=== PATIENT | male | born 1990 | race African-American/Black ===

== ENCOUNTER 2016-12-23 22:32 | Emergency (ER) ==
[2016-12-23 22:38] VITALS: BP 132/81
== END 2016-12-24 01:10 | disposition left against medical advice (07) ==
LOC: ER 22:32
DX: Z53.21 Procedure and treatment not carried out due to patient leaving prior to being seen by health care provider (principal)

== ENCOUNTER 2016-12-24 13:21 | Emergency (ER) | payer SELFPAY ==
--- NOTE | 2016-12-24 14:15 | ER Document Report ---
ED Medical Screen (RME) - General Chief Complaint: Toothache Stated Complaint: TOOTH PAIN Time Seen by Provider: 12/24/16 14:14 Mode of Arrival: Ambulatory Information source: Patient Notes: We will male presents to ED for dental pain to left lower jaw he states his 2 teeth that are hurting suiting up to his left ear. Been hurting for days and is not getting any better. When a broken tooth states he does have a cavity. I have greeted and performed a rapid initial assessment of this patient. A comprehensive ED assessment and evaluation of the patient, analysis of test results and completion of medical decision making process will be conducted by an additional ED providers. TRAVEL OUTSIDE OF THE [place] IN LAST 30 DAYS: No - Related Data Allergies/Adverse Reactions: No Known Allergies Allergy (Verified 12/24/16 13:30) Past Medical History Renal/ Medical History: Denies: Hx Peritoneal Dialysis Physical Exam - Vital signs Vitals: Temp Pulse Resp BP Pulse Ox 97.9 F 62 12 122/67 98 12/24/16 13:30 12/24/16 13:30 12/24/16 13:30 12/24/16 13:30 12/24/16 13:30 Course - Vital Signs Vital signs: Temp Pulse Resp BP Pulse Ox 97.9 F 62 12 122/67 98 12/24/16 13:30 12/24/16 13:30 12/24/16 13:30 12/24/16 13:30 12/24/16 13:30
[2016-12-24] MEDS ORDERED: PENICILLIN V POTASSIUM 500 MG TABLET PO ONE (14:17)
[2016-12-24] MEDS ORDERED: HYDROCODONE/ACETAMINOPHEN 5-325 MG TABLET PO ONE (14:17)
--- NOTE | 2016-12-24 15:37 | ER Document Report ---
HPI - HPI Patient complains to provider of: dental pain Onset: Other - couple days Onset/Duration: Persistent Quality of pain: Achy, Throbbing Severity: Severe Pain Level: 5 Context: Patient presents to the emergency department with complaints of right lower dental pain for the past couple days. He reports he has a cracked tooth in this area but has never bothered him before. He denies biting down and breaking his tooth on anything. Denies other symptoms such as fever vomiting diarrhea. Reports the pain is constant. Associated Symptoms: None Exacerbated by: Denies Relieved by: Denies Similar symptoms previously: No Recently seen / treated by doctor: No - DERM Skin Color: Normal Past Medical History - General Information source: Patient - Social History Smoking Status: Unknown if Ever Smoked Cigarette use (# per day): Yes Frequency of alcohol use: None Drug Abuse: None Family History: None Patient has suicidal ideation: No Patient has homicidal ideation: No Pulmonary Medical History: Reports: Hx Asthma, Hx Bronchitis, Hx Pneumonia Renal/ Medical History: Denies: Hx Peritoneal Dialysis Past Surgical History: Reports: Hx Testicular Surgery Vertical Provider Document - CONSTITUTIONAL Agree With Documented VS: Yes Exam Limitations: No Limitations General Appearance: WD/WN - INFECTION CONTROL TRAVEL OUTSIDE OF THE [place] IN LAST 30 DAYS: No - HEENT HEENT: Atraumatic, Normocephalic. negative: Conjuctival Injection, Pharyngeal Exudate, Pharyngeal Tenderness, Pharyngeal Erythema, Tympanic Membrane Red, Tympanic Membrane Bulging Mouth Diagram: 1 - Reports are of pain no obvious infection, no erythema, no swelling ,no discharge, no pustule open his mouth wide no induration, clear voice no trismus , no ludwigs - NECK Neck: Normal Inspection, Supple. negative: Lymphadenopathy-Left, Lymphadenopathy-Right - RESPIRATORY Respiratory: Breath Sounds Normal, No Respiratory Distress O2 Sat by Pulse Oximetry: 98 - CARDIOVASCULAR Cardiovascular: Regular Rate - MUSCULOSKELETAL/EXTREMETIES Musculoskeletal/Extremeties: MAEW, FROM - NEURO Level of Consciousness: Awake, Alert, Appropriate Motor/Sensory: No Motor Deficit Course - Re-evaluation Re-evalutation: 12/24/16 15:42 Patient was placed in a hallway bed. Patient was asked if he was okay being placed in the hallway for treatment. He reported he was okay with sitting in a hallway bed. Patient was instructed on all medications. Patient was also instructed on the importance of follow-up with dental. He verbalized understanding to all instructions. - Vital Signs Vital signs: Temp Pulse Resp BP Pulse Ox 97.9 F 62 12 122/67 98 12/24/16 13:30 12/24/16 13:30 12/24/16 13:30 12/24/16 13:30 12/24/16 13:30 Discharge - Discharge Clinical Impression: Pain, dental Condition: Stable Disposition: HOME, SELF-CARE Instructions: Oral Narcotic Medication ([facility]), Toothache ([facility]), Penicillin V K ( [facility]) Additional Instructions: *You have been evaluated for dental pain *Take medications as prescribed *Follow up with dentist within one week *Return to ED for worsening condition, changes, needs Prescriptions: Oxycodone HCl/Acetaminophen [Percocet 5-325 mg Tablet] 1 - 2 tab PO ASDIR PRN # 15 tablet PRN Reason: Penicillin V Potassium [Penicillin Vk 500 mg Tablet] 500 mg PO BID #20 tablet
[2016-12-24 16:02] VITALS: BP 132/80
== END 2016-12-24 15:50 | disposition home or self-care (01) ==
LOC: ER 13:21
DX: K08.9 Disorder of teeth and supporting structures, unspecified (principal); J45.909 Unspecified asthma, uncomplicated
CPT/HCPCS: 99282

== ENCOUNTER 2017-01-05 05:55 | Emergency (ER) | payer SELFPAY ==
[2017-01-05] MEDS ORDERED: ONDANSETRON 4 MG TAB.RAPDIS PO ONE (05:59)
[2017-01-05] MEDS ORDERED: AZITHROMYCIN 250 MG TABLET PO ONE (05:59)
[2017-01-05] MEDS ORDERED: CEFTRIAXONE INJ 250 MG VIAL IM ONE (05:59)
[2017-01-05] MEDS ORDERED: LIDOCAINE 1% INJ-PF (10 MG/ML) 30 ML SDV INJ ONE (06:00)
--- NOTE | 2017-01-05 06:03 | ER Document Report ---
HPI - HPI Patient complains to provider of: Exposure to chlamydia Onset: Other - Symptoms Quality of pain: No pain Context: 26-year-old male wants to be treated for chlamydia. He is here with a sexual partner who tested positive for chlamydia November 29 untreated. No penile discharge. No dysuria. No scrotal or testicular pain. No abdominal pain. No fever chills. No history of STD Associated Symptoms: None Exacerbated by: Denies Relieved by: Denies Similar symptoms previously: No Recently seen / treated by doctor: No - ROS ROS below otherwise negative: Yes Systems Reviewed and Negative: Yes All other systems reviewed and negative Past Medical History - General Information source: Patient - Social History Smoking Status: Current Every Day Smoker Frequency of alcohol use: None Drug Abuse: None Lives with: Spouse/Significant other Family History: None Pulmonary Medical History: Reports: Hx Asthma, Hx Bronchitis, Hx Pneumonia Renal/ Medical History: Denies: Hx Peritoneal Dialysis Past Surgical History: Reports: Hx Testicular Surgery Vertical Provider Document - CONSTITUTIONAL Agree With Documented VS: Yes Exam Limitations: No Limitations General Appearance: No Apparent Distress - INFECTION CONTROL TRAVEL OUTSIDE OF THE [place] IN LAST 30 DAYS: No - NECK Neck: Supple - RESPIRATORY Respiratory: Breath Sounds Normal, No Respiratory Distress - CARDIOVASCULAR Cardiovascular: Regular Rate, Regular Rhythm - GI/ABDOMEN Gastrointestinal: Abdomen Soft, Abdomen Non-Tender - MUSCULOSKELETAL/EXTREMETIES Musculoskeletal/Extremeties: ANNI MANLEY - NEURO Level of Consciousness: Awake, Alert - DERM Integumentary: Warm, Dry Discharge - Discharge Clinical Impression: Exposure to chlamydia Condition: Good Disposition: HOME, SELF-CARE Instructions: Chlamydia ([facility]), Azithromycin ([facility]), Rocephin ([facility]), [facility] Additional Instructions: you and your sex partner have been treated for possible gonorrhrea, and chlamydia call me tomorrow after 7 pm for the std culutre result no sex for 2 weeks to er any symptoms or concerns
[2017-01-05 06:41] VITALS: BP 124/77
[2017-01-05 09:32] LABS: CHLAM PCR NOT DETECTED (NOT DETECT)
== END 2017-01-05 06:42 | disposition home or self-care (01) ==
LOC: ER 05:55
DX: Z20.2 Contact with and (suspected) exposure to infections with a predominantly sexual mode of transmission (principal); F17.200 Nicotine dependence, unspecified, uncomplicated; J45.909 Unspecified asthma, uncomplicated
CPT/HCPCS: 99283; 96372; 87491; 87591; S0119; J3490; J0696

== ENCOUNTER 2017-09-22 20:08 | Emergency (ER) | payer SELFPAY ==
[2017-09-22 22:44] VITALS: BP 136/76
[2017-09-22] MEDS ORDERED: LIDOCAINE 2% VISCOUS SOLN 20 ML UDCUP PO ONE (22:53)
[2017-09-22] MEDS ORDERED: CLINDAMYCIN HCL 150 MG CAPSULE PO ONE (22:53)
--- NOTE | 2017-09-22 22:58 | ER Document Report ---
ED Oral Problem - General Chief Complaint: Toothache Stated Complaint: TOOTHACHE Time Seen by Provider: 09/22/17 22:43 Mode of Arrival: Ambulatory Information source: Patient Notes: 26-year-old male presents to ED for complaint of left lower toothache with mild swelling in his face. He states he went to [facility] 2 weeks ago and was given antibiotics but is not sure what. States he did not get any better and has not been able to see a dentist due to his work. TRAVEL OUTSIDE OF THE [place] IN LAST 30 DAYS: No - HPI Patient complains to provider of: Toothache Onset: Other - At least a month Onset: Gradual Quality of pain: Sharp, Throbbing Severity: Severe Pain Level: 5 Associated symptoms: Facial pain, Toothache, Other - Very mild swelling to the face at the left jaw Worsened by: Cold Relieved by: Nothing Similar symptoms previously: Yes Recently seen / treated by doctor/dentist: Yes - Related Data Allergies/Adverse Reactions: No Known Allergies Allergy (Verified 12/24/16 13:30) Past Medical History - General Information source: Patient - Social History Smoking Status: Current Every Day Smoker Cigarette use (# per day): Yes - Half pack per day Chew tobacco use (# tins/day): No Smoking Education Provided: Yes Frequency of alcohol use: Social Drug Abuse: None Lives with: Other - Lives in a room at someone's house by himself Family History: Arthritis, Hypertension. denies: CAD, COPD, CVA, DM, Hyperlipidemia, Malignancy, Thyroid Disfunction Patient has suicidal ideation: No Patient has homicidal ideation: No - Past Medical History Cardiac Medical History: Reports: None Pulmonary Medical History: Reports: Hx Asthma, Hx Bronchitis, Hx Pneumonia EENT Medical History: Reports: None Neurological Medical History: Reports: None Endocrine Medical History: Reports: None Renal/ Medical History: Reports: None Malignancy Medical History: Reports None GI Medical History: Reports: None Musculoskeltal Medical History: Reports None Skin Medical History: Reports None Psychiatric Medical History: Reports: None Traumatic Medical History: Reports: None Infectious Medical History: Reports: None Past Surgical History: Reports: Hx Inguinal Hernia, Hx Testicular Surgery - Immunizations Immunizations up to date: Yes Hx Diphtheria, Pertussis, Tetanus Vaccination: Yes Review of Systems - Review of Systems Constitutional: No symptoms reported EENT: Mouth swelling, Dental problem, Other - Facial swelling Cardiovascular: No symptoms reported Respiratory: No symptoms reported Gastrointestinal: No symptoms reported Genitourinary: No symptoms reported Male Genitourinary: No symptoms reported Musculoskeletal: No symptoms reported Skin: No symptoms reported Hematologic/Lymphatic: No symptoms reported Neurological/Psychological: No symptoms reported -: Yes All other systems reviewed and negative Physical Exam - Vital signs Vitals: Temp Pulse BP Pulse Ox 97.8 F 80 136/76 H 98 09/22/17 20:39 09/22/17 20:39 09/22/17 20:39 09/22/17 20:39 Interpretation: Normal - General General appearance: Appears well, Alert - HEENT Head: Normocephalic, Atraumatic Eyes: Normal Pupils: PERRL Ears: Normal External canal: Normal Tympanic membrane: Normal Sinus: Normal Nasal: Normal Mouth/Lips: Caries Mucous membranes: Normal Teeth diagram: 1 - Cavities and tooth #18 with minimal swelling to the gums and very minimal swelling to the face at that area. Pharynx: Normal Neck: Normal - Respiratory Respiratory status: No respiratory distress Chest status: Nontender Breath sounds: Normal Chest palpation: Normal - Cardiovascular Rhythm: Regular Heart sounds: Normal auscultation Murmur: No - Abdominal Inspection: Normal Distension: No distension Bowel sounds: Normal Tenderness: Nontender Organomegaly: No organomegaly - Back Back: Normal, Nontender - Extremities General upper extremity: Normal inspection, Nontender, Normal color, Normal ROM , Normal temperature General lower extremity: Normal inspection, Nontender, Normal color, Normal ROM , Normal temperature, Normal weight bearing. No: Christoph's sign - Neurological Neuro grossly intact: Yes Cognition: Normal Orientation: AAOx4 Meme Coma Scale Eye Opening: Spontaneous [place] Coma Scale Verbal: Oriented Meme Coma Scale Motor: Obeys Commands [place] Coma Scale Total: 15 Speech: Normal Motor strength normal: LUE, RUE, LLE, RLE Sensory: Normal - Psychological Associated symptoms: Normal affect, Normal mood - Skin Skin Temperature: Warm Skin Moisture: Dry Skin Color: Normal Course - Re-evaluation Re-evalutation: 09/23/17 02:00 Patient was treated with clindamycin 600 mg p.o and viscous lidocaine in a syringe for use for pain. and discharged home with a prescription for for clindamycin. Patient instructed to follow-up with dentist for definitive care of this tooth. Patient verbalized understanding of instructions. I asked patient if he had any other questions or concerns. He stated no he did not have any more questions. Patient was discharged home. - Vital Signs Vital signs: Temp Pulse Resp BP Pulse Ox 97.8 F 80 136/76 H 98 09/22/17 20:39 09/22/17 20:39 09/22/17 20:39 09/22/17 20:39 Discharge - Discharge Clinical Impression: Pain due to dental caries Condition: Stable Disposition: HOME, SELF-CARE Additional Instructions: TOOTHACHE: Your pain is due to dental decay. The tooth must be repaired in order for you to feel better. You will, therefore, be referred to a dentist. We do not have dentists on the staff at [facility]. Severe swelling or drainage around a tooth usually means a dental abscess. This also requires evaluation and treatment by the dentist, but antibiotics may be prescribed while awaiting dental treatment. You should be rechecked immediately if you develop major swelling of the face, increasing pain, a lump in the jaw or gums, headache, difficulty swallowing, or fever. CLINDAMYCIN: You have been given a prescription for the antibiotic clindamycin. It is often prescribed for infections in the mouth, such as dental infections or abscesses, and for skin infections due to MRSA. It's important that you take all the medication, unless instructed otherwise by your physician. Failure to complete the entire course can result in relapse of your condition. Common side effects of antibiotics include nausea, intestinal cramping, or diarrhea. Women may develop vaginal yeast infections, and babies can get yeast (thrush) in the mouth following the use of antibiotics. Contact your physician if you develop significant side effects from this medication. Allergy to this antibiotic can result in hives, wheezing, faintness, or itching. If symptoms of allergy occur, stop the medication and call the doctor. You have been given a syringe of viscous lidocaine. Put a small amount on your finger and put it on the gums were you tooth hurts every 3-4 hours. She can also use Tylenol or Motrin for your pain. Salt and soda solution 1 quart of water 1 tablespoon of salt 1 teaspoon of baking soda Mixed 3 ingredients together and boil for 1 minute Placed in a covered quart jar Use 1/2 ounce of cold solution to gargle 3 times a day FOLLOW-UP CARE: You have been referred for follow-up care to the dentists listed below. Call the dentists office for an appointment as you were instructed or within the next two days. If you experience worsening or a significant change in your symptoms, notify the physician immediately or return to the Emergency Department at any time for re-evaluation. [facility] [address] [place], [place] [facility] [address] [place] [address] [facility] [address] [facility] [address] [facility] ([facility]) [facility] [address] [email or web address] [address] [place] [address] Tuesday- 8:00am to 5:00 pm [facility]. Charges based on income and family size and accepts Medicare, Medicaid, and Insurances Will pull molars [facility] [id number] Hours of Operation 8:00 am - 4:30 pm weekdays The following dental offices accept Medicaid: [facility] Dr. Rodriguez Dr. [address] Dr. Lundy Dr. Farias Virgilio Damon Lutsavage, and [facility] Dr. Merino ([place]) Dr. Patrick ([place]ette Ramirez) [facility] Drs. Gardner and Sam ([place]) Dr. Fisher ([place]) [facility] Dr. Shankar ([place]) Drs. Borrego and ([place]) Medicaid Care Line Prescriptions: Clindamycin HCl 300 mg PO Q6HP PRN #28 capsule PRN Reason: Forms: Elevated Blood Pressure, Smoking Cessation Education, Return to Work
== END 2017-09-22 23:26 | disposition home or self-care (01) ==
LOC: ER 20:08
DX: K02.9 Dental caries, unspecified (principal); K08.89 Other specified disorders of teeth and supporting structures; R22.0 Localized swelling, mass and lump, head; J45.909 Unspecified asthma, uncomplicated; F17.210 Nicotine dependence, cigarettes, uncomplicated
CPT/HCPCS: 99282; J3490

== ENCOUNTER 2017-10-10 20:20 | Emergency (ER) | payer SELFPAY ==
[2017-10-10 21:50] LABS: APPEARANCE,URINE CLEAR; BILIRUBIN,URINE NEGATIVE (NEGATIVE); COLOR,URINE YELLOW; GLUCOSE, URINE NEGATIVE (NEGATIVE); KETONES,URINE NEGATIVE (NEGATIVE); LEUKOCYTE ESTERASE,URINE NEGATIVE (NEGATIVE); NITRITE,URINE NEGATIVE (NEGATIVE); PROTEIN,URINE NEGATIVE (NEGATIVE); URINE SPECIFIC GRAVITY 1.024; UROBILINOGEN,URINE NEGATIVE mg/dL (<2.0)
[2017-10-10 22:59] LABS: T.VAGINALIS (WET MOUNT) NO TRICHOMONAS SEEN; YEAST (WET MOUNT) NO YEAST SEEN
[2017-10-10 23:00] LABS: WBCS (WET MOUNT) NO WBCS SEEN
--- NOTE | 2017-10-10 23:40 | ER Document Report ---
HPI - HPI Patient complains to provider of: pyuria Pain Level: 3 Context: Patient is a 26 year old male who presents to the Ed complaining of pyruai for one week but denies pain, discharge, testicular pain, swelling, erythema. Last S /A approx one month ago with a partner who tested positive for trichomonas but he states they always used protection. Denies any rash, skin outbreaks. Denies any previous STDs - CONSTITUTIONAL Constitutional: DENIES: Fever, Chills - EENT EENT: DENIES: Sore Throat, Ear Pain, Eye problems - NEURO Neurology: DENIES: Headache, Weakness, Vision blurred, Dizzinesss / Vertigo - CARDIOVASCULAR Cardiovascular: DENIES: Chest pain - RESPIRATORY Respiratory: DENIES: Trouble Breathing, Coughing - GASTROINTESTINAL Gastrointestinal: DENIES: Abdominal Pain, Black / Bloody Stools - URINARY Urinary: REPORTS: Dysuria. DENIES: Urgency, Frequency - MUSCULOSKELETAL Musculoskeletal: DENIES: Extremity pain Past Medical History - Social History Smoking Status: Unknown if Ever Smoked Family History: Arthritis, Hypertension. denies: CAD, COPD, CVA, DM, Hyperlipidemia, Malignancy, Thyroid Disfunction Patient has suicidal ideation: No Patient has homicidal ideation: No Pulmonary Medical History: Reports: Hx Asthma, Hx Bronchitis, Hx Pneumonia Renal/ Medical History: Denies: Hx Peritoneal Dialysis Past Surgical History: Reports: Hx Inguinal Hernia, Hx Testicular Surgery - Immunizations Immunizations up to date: Yes Hx Diphtheria, Pertussis, Tetanus Vaccination: Yes Vertical Provider Document - CONSTITUTIONAL Agree With Documented VS: Yes Notes: PHYSICAL EXAM GENERAL: Alert, interacts well. ABDOMEN: Soft, nondistended, nontender. No guarding, rebound, or rigidity.. Bowel sounds present in all 4 quadrants. Male : Normal inspection of a circumcised penis without any evidence of lesions, rash. Nontender to palpation. No palpable lymph nodes. No evidence of discharge. Testicles nontender to palpation EXTREMITIES: Moves all 4 extremities spontaneously. No edema, radial and dorsalis pedis pulses 2/4 bilaterally. No cyanosis. NEUROLOGICAL: Alert and oriented x4. Normal speech. PSYCH: Normal affect, normal mood. SKIN: Warm, dry, normal turgor. No rashes or lesions noted. - INFECTION CONTROL TRAVEL OUTSIDE OF THE [place] IN LAST 30 DAYS: No - RESPIRATORY O2 Sat by Pulse Oximetry: 99 Course - Re-evaluation Re-evalutation: 03/05/18 23:38 Patient is a 26-year-old male is hemodynamic stable, no acute distress and afebrile. Urinalysis without any evidence of bacturia. Wet mount without evidence of trichomonas. Patient will call tomorrow for results of quitting gonorrhea otherwise will follow-up with the health department as needed. Stable for discharge home. 10/11/17 01:24 - Vital Signs Vital signs: Temp Pulse Resp BP Pulse Ox 98.7 F 108 H 20 110/86 H 99 10/10/17 20:33 10/10/17 20:33 10/10/17 20:33 10/10/17 20:33 10/10/17 20:33 Discharge - Discharge Clinical Impression: Pyuria Condition: Good Disposition: HOME, SELF-CARE Additional Instructions: Your visit today did not reveal any evidence of a current STD infection. Your urine did not show any evidence of a bacterial infection. Someone will call you with your Chlamydia/gonorrhea results only if they are positive tomorrow. Referrals: TAMANNA DIANA DO [NO LOCAL MD] - Follow up in 1 week
[2017-10-10 23:49] VITALS: BP 131/86
[2017-10-11 00:20] LABS: CHLAM PCR NOT DETECTED (NOT DETECT); GON PCR NOT DETECTED (NOT DETECT)
== END 2017-10-11 00:04 | disposition home or self-care (01) ==
LOC: ER 20:20
DX: N39.0 Urinary tract infection, site not specified (principal)
CPT/HCPCS: 81001; 87210; 87491; 87591; 99283